=== PATIENT | female | born 1960 | race Caucasian/White ===

== ENCOUNTER → 2016-10-27 | Outpatient (CLI) | payer BC ==
--- NOTE | 2016-10-27 15:38 | CT ---
EXAMINATION TYPE: CT abdomen pelvis w con DATE OF EXAM: 10/27/2016 HISTORY: Blood in stool-bright red, on and off per patient. Abdominal pain not further specified per order CT DLP: 740mGycm Automated Exposure Control for Dose Reduction was Utilized. CONTRAST: CT scan of the abdomen and pelvis is performed with oral and with IV Contrast, patient injected with 100 mL of Omnipaque 300. COMPARISON: CT abdomen and pelvis September 10, 2013. FINDINGS: LUNG BASES: Some linear scarring posteriorly in the right lower lobe is present. There is prominent c alcification proximal LAD or stent on axial image 1 partially imaged. LIVER/GB: No significant abnormality is appreciated. PANCREAS: Pancreatic duct is visualized towards head but is not abnormally dilated. SPLEEN: No significant abnormality is seen. ADRENALS: No significant abnormality is seen. KIDNEYS: No significant abnormality is seen. BOWEL: The oral contrast reaches level of the proximal sigmoid colon. Terminal ileum is felt within n ormal limits seen best near coronal image 31. There is no suspicious small or large bowel dilatation identified. Evaluation bowel is slightly suboptimal as patient has very little intra-abdominal fat. UTERUS/ADNEXA: Uterus is retroverted in shape and somewhat small in size consistent with patient's po stmenopausal age. LYMPH NODES: No greater than 1cm abdominal or pelvic lymph nodes are appreciated. OSSEOUS STRUCTURES: No significant abnormality is seen. OTHER: No significant additional abnormality is seen. IMPRESSION: No suspicious finding is seen to account for patient's symptoms. No significant change fr om prior.
== END | disposition home or self-care (01) ==
LOC: RADCTMAIN 10:43
PROVIDERS: ATTEND Family Medicine
DX: R10.9 Unspecified abdominal pain (principal)
CPT/HCPCS: 74177; Q9967

== ENCOUNTER → 2018-05-12 | Outpatient (CLI) | payer BC, OTHER ==
--- NOTE | 2018-05-15 11:35 | MM ---
Reason for exam: screening (asymptomatic). Last mammogram was performed 1 year ago. History: Patient is postmenopausal and is nulliparous. Family history of breast cancer in sister at age 49 and breast cancer in cousin at age 39. Physical Findings: A clinical breast exam by your physician is recommended on an annual basis and results should be correlated with mammographic findings. MG 3D Screening Mammo W/Cad Bilateral CC and MLO view(s) were taken. Prior study comparison: May 11, 2017, bilateral MG screening mammo w CAD. February 04, 2016, bilateral MG 3d screening mammo w/cad. The breast tissue is extremely dense which could obscure a lesion on mammography. There are benign appearing round calcifications bilaterally. There is no discrete abnormality. ASSESSMENT: Benign, BI-RAD 2 RECOMMENDATION: Routine screening mammogram of both breasts in 1 year.
== END ==
LOC: RADMAMWWP 10:12
PROVIDERS: ATTEND Obstetrics & Gynecology
DX: Z12.31 Encounter for screening mammogram for malignant neoplasm of breast (principal)
CPT/HCPCS: 77063; 77067

== ENCOUNTER → 2018-06-26 | Outpatient (CLI) | payer BC ==
--- NOTE | 2018-06-26 09:35 | CTL ---
EXAMINATION TYPE: CT Low Dose Lung DATE OF EXAM ORDERED: 06/26/2018 HISTORY: 57-year-old female personal history of tobacco use. Lung cancer screening CT DLP: [address] CTDI: 1.61 mGy Automated exposure control for dose reduction was used. SCREENING VISIT: Baseline COMPARISON: None TECHNIQUE: Low dose computed tomography scan was performed through the chest at 1 mm thick sections a nd reconstructed images in the coronal/sagittal plane. Coronal MIP reconstruction also performed. CT DIAGNOSTIC QUALITY: Satisfactory FINDINGS: Heart normal size without pericardial effusion. Coronary vessel calcifications are present. Aorta normal caliber with conventional arch vessel branching anatomy. No thoracic lymphadenopathy by CT size criteria. Visualized upper abdomen shows no gross abnormality. Evaluation of the lungs shows mild centrilobular emphysema. Mild biapical pleural-parenchymal scarring. Calcified granuloma anterior right upper lobe, axial image 91. Additional calcified granuloma right lower lobe axial image 170. Calcified granuloma posterior left lower lobe axial image 18. Mild diffuse bronchial wall thickening. Prominent bands of atelectasis or scarring in the lower lungs. No consolidation or pleural effusion. Bones: Mild to moderate degenerative disc disease mid thoracic spine. Minimal anterior wedging of T5 as a chronic appearance. IMPRESSION: 1. LungRADS 2 - benign; a few scattered calcified granulomas. No other suspicious pulmonary nodules. 2. COPD with mild emphysema. RECOMMENDATION: 1. Continue annual low-dose lung cancer screening CT. 2. Smoking cessation. FOLLOW UP CT CHEST RECOMMENDATION: [address] LUNG RAD: Lung-Rad 2 Benign Appearance or Behavior
== END | disposition home or self-care (01) ==
LOC: RADCTMAIN 07:54
PROVIDERS: ATTEND Family Medicine
DX: J84.10 Pulmonary fibrosis, unspecified (principal); J43.9 Emphysema, unspecified; Z87.891 Personal history of nicotine dependence

== ENCOUNTER → 2020-02-29 | Outpatient (CLI) | payer BC, OTHER ==
--- NOTE | 2020-03-03 08:46 | MM ---
Reason for exam: screening (asymptomatic). Last mammogram was performed 1 year and 10 months ago. History: Patient is postmenopausal and is nulliparous. Family history of breast cancer in sister at age 49 and breast cancer in cousin at age 39. Physical Findings: A clinical breast exam by your physician is recommended on an annual basis and results should be correlated with mammographic findings. MG 3D Screening Mammo W/Cad Bilateral CC and MLO view(s) were taken. Prior study comparison: May 12, 2018, bilateral MG 3d screening mammo w/cad. May 11, 2017, bilateral MG screening mammo w CAD. The breast tissue is extremely dense which could obscure a lesion on mammography. No significant changes when compared with prior studies. ASSESSMENT: Benign, BI-RAD 2 RECOMMENDATION: Routine screening mammogram of both breasts in 1 year.
== END | disposition home or self-care (01) ==
LOC: RADMAMWWP 10:53
PROVIDERS: ATTEND Family Medicine
DX: Z12.31 Encounter for screening mammogram for malignant neoplasm of breast (principal); Z80.3 Family history of malignant neoplasm of breast
CPT/HCPCS: 77063; 77067

== ENCOUNTER → 2020-07-25 | Outpatient (CLI) | payer BC, OTHER | END | disposition home or self-care (01) | LOC: LABWHC1 09:46 | PROVIDERS: ATTEND Internal Medicine Rheumatology | DX: M05.79 Rheumatoid arthritis with rheumatoid factor of multiple sites without organ or systems involvement (principal) | CPT/HCPCS: 36415; 86480 ==

== ENCOUNTER → 2021-01-09 | Outpatient (CLI) | payer BC, OTHER ==
--- NOTE | 2021-01-09 09:02 | CTL ---
EXAMINATION TYPE: CT Low Dose Lung DATE OF EXAM ORDERED: 01/09/2021 HISTORY: . Lung cancer screening CT DLP: 47.[address] CTDI: 1.3 mGy Automated exposure control for dose reduction was used. SCREENING VISIT: COMPARISON: 06/26/2018 TECHNIQUE: Low dose computed tomography scan was performed through the chest at 1 mm thick sections a nd reconstructed images in the coronal plane at [address] DIAGNOSTIC QUALITY: Satisfactory FINDINGS: Heart normal size without pericardial effusion. Coronary vessel calcifications are present. Aorta nor mal caliber with conventional arch vessel branching anatomy. No thoracic lymphadenopathy by CT size c riteria. Visualized upper abdomen shows no gross abnormality. Evaluation of the lungs shows mild centrilobular emphysema. Mild biapical pleural-parenchymal scarring. Calcified granuloma anterior right upper lobe, stable. Additional calcified granuloma right lower lob e stable. Calcified granuloma posterior left lower lobe axial stable. Additional 2 mm right apical buffy ng nodule too small to characterize. Mild diffuse bronchial wall thickening. Prominent bands of atelectasis or scarring in the lower lung s. There is a area of increasing consolidation along the medial aspect of the right lower lobe with c hanges of bronchiectasis most likely in the basis of atelectasis. Correlate clinically to exclude a p neumonitis. Bones: Mild to moderate degenerative disc disease mid thoracic spine. Minimal anterior wedging of T5 as a chronic appearance. IMPRESSION: 1. Stable sub-5 mm pulmonary nodules the majority which are calcified compatible with granuloma. 2. COPD with area of increasing consolidation medial aspect superior segment right lower lobe most li kaitlyn in the basis of atelectasis correlate clinically to exclude a pneumonitis CT LUNG RAD AND CT CHEST RECOMMENDATION: Lung-Rad 2 Benign Appearance or Behavior: Continue annual sc reening with LDCT in 12 months. S Modifier (other clinically significant findings): S
== END | disposition home or self-care (01) ==
LOC: RADCTMAIN 07:55
PROVIDERS: ATTEND Family Medicine
DX: Z12.2 Encounter for screening for malignant neoplasm of respiratory organs (principal); J44.9 Chronic obstructive pulmonary disease, unspecified; R91.8 Other nonspecific abnormal finding of lung field
CPT/HCPCS: 71271

== ENCOUNTER → 2021-11-06 | Outpatient (CLI) | payer BC, OTHER ==
--- NOTE | 2021-11-09 18:29 | MM ---
Reason for Exam: Screening (asymptomatic). Last mammogram was performed 1 year(s) and 8 month(s) ago. Patient History: Menarche at age 10. Patient has no children. Postmenopausal. Maternal cousin had breast cancer, age 39. Sister had breast cancer, age 49. Risk Values: Ashley 5 year model risk: 3.1%. NCI Lifetime model risk: 12.8%. Physical Findings: Physical Exam Performed After Images Prior Study Comparison: 05/11/2017 Bilateral Screening Mammogram, [facility]. 05/12/2018 Bilateral Screening Mammogram, [facility]. 02/29/2020 Bilateral Screening Mammogram, [facility]. Tissue Density: The breast tissue is extremely dense which could obscure a lesion on mammography. Findings: Analyzed By CAD. No significant change from prior exams. Overall Assessment: Incomplete: need additional imaging evaluation, BI-RAD 0 Management: Diagnostic Breast Ultrasound of the left breast. Ultrasound whole left breast for nipple discharge. Electronically signed and approved by: Vielka Mcclellan M.D. Radiologist
== END | disposition home or self-care (01) ==
LOC: RADMAMWWP 06:51
PROVIDERS: ATTEND Family Medicine
DX: Z12.31 Encounter for screening mammogram for malignant neoplasm of breast (principal); Z78.0 Asymptomatic menopausal state; Z80.3 Family history of malignant neoplasm of breast
CPT/HCPCS: 77063; 77067

== ENCOUNTER → 2021-11-16 | Outpatient (CLI) | payer BC, OTHER ==
--- NOTE | 2021-11-16 15:05 | USB ---
Reason for Exam: Additional evaluation requested from prior study. Patient History: Menarche at age 10. Patient has no children. Postmenopausal. Maternal cousin had breast cancer, age 39. Sister had breast cancer, age 49. Risk Values: Ashley 5 year model risk: 3.1%. NCI Lifetime model risk: 12.8%. Prior Study Comparison: 05/12/2018 Bilateral Screening Mammogram, [facility]. 02/29/2020 Bilateral Screening Mammogram, [facility]. 11/06/2021 Bilateral MG 3D screening mammo w/cad, [facility]. Findings: The whole breast of the left breast, the axilla of the left breast and the retroareolar of the left breast were scanned. No discrete solid or cystic areas evident within the left breast. Consider screening MRI if clinically appropriate. Diagnostic imaging can be performed for clinical findings. Overall Assessment: Negative, BI-RAD 1 Management: Screening Mammogram of both breasts in 1 year. A clinical breast exam by your physician is recommended on an annual basis and results should be correlated with mammographic findings. Electronically signed and approved by: Cal Brooks D.O. Radiologis
== END | disposition home or self-care (01) ==
LOC: RADUSWWP 06:55
PROVIDERS: ATTEND Family Medicine
DX: R92.8 Other abnormal and inconclusive findings on diagnostic imaging of breast (principal); Z78.0 Asymptomatic menopausal state; Z80.3 Family history of malignant neoplasm of breast

== ENCOUNTER → 2021-11-16 | Outpatient (CLI) | payer BC, OTHER ==
--- NOTE | 2021-11-16 09:22 | US ---
EXAMINATION TYPE: US abdomen complete DATE OF EXAM: 11/16/2021 COMPARISON: NONE CLINICAL HISTORY: R19.00 INTRA ABD PELVIC SWELLING. EXAM MEASUREMENTS: Liver Length: 13.2 cm Gallbladder Wall: 0.1 cm CBD: 0.5 cm Spleen: 6.9 cm Right Kidney: 9.7 x 4.6 x 4.5 cm Left Kidney: 9.0 x 4.5 x 4.3 cm Pancreas: wnl Liver: wnl Gallbladder: wnl Evidence for sonographic Rodriguez's sign: No CBD: wnl Spleen: wnl Right Kidney: No hydronephrosis or masses seen, partially obscured by overlying bowel gas Left Kidney: No hydronephrosis or masses seen, partially obscured by overlying bowel gas Upper IVC: wnl Abd Aorta: wnl Scanned at patients palpable, consider possible midline wall hernia. No obvious bowel involvement is evident. Noncontrast CT may demonstrate this more clearly. IMPRESSION: 1. Intra-abdominal contents appear unremarkable by ultrasound. 2. There may be a midline anterior abdominal wall hernia. Consider CT to further evaluate.
== END | disposition home or self-care (01) ==
LOC: RADUSWWP 06:57
PROVIDERS: ATTEND Family Medicine
DX: R19.09 Other intra-abdominal and pelvic swelling, mass and lump (principal)
CPT/HCPCS: 76700

== ENCOUNTER → 2021-12-18 | Day surgery (SDC) | payer BC, OTHER ==
[2021-12-16 15:03] VITALS: BMI 22.3
[~2021-12-18] MED LIST: LACTATED RINGERS 1,000 ML IV SCH; LIDOCAINE 2% INJ 20 MG/ML (2 ML VIAL) ONE; PROPOFOL 10 MG/ML 20 ML VIAL IV ONE
[2021-12-18 11:27] VITALS: RESP 16; TEMP 98.6
--- NOTE | 2021-12-18 12:54 | P.PCN ---
Date of Procedure: 12/18/21 Procedure(s) Performed: BRIEF HISTORY: Patient is a 61-year-old pleasant white female scheduled for an elective colonoscopy as a part of screening for colorectal neoplasia PROCEDURE PERFORMED: Colonoscopy. PREOPERATIVE DIAGNOSIS: Screening for colon cancer. IV sedation per Anesthesia. PROCEDURE: After informed consent was obtained, the patient, was brought into the endoscopy unit. IV sedation was administered by Anesthesia under continuous monitoring. Digital rectal examination was normal. Initially the Olympus CF-160 flexible video colonoscope was then inserted in the rectum, gradually advanced into the cecum without any difficulty. Careful examination was performed as the scope was gradually being withdrawn. Ileocecal valve and the appendiceal orifice were visualized and appeared normal. Prep was excellent. Mucosa of the cecum, ascending colon, transverse colon, descending colon, sigmoid colon, and rectum appeared normal. Retroflexion was performed in the rectum and no lesions were seen. The patient tolerated the procedure well. IMPRESSION: Normal-appearing colon from rectum to cecum with no evidence of colorectal neoplasia. RECOMMENDATIONS: Findings of this examination were discussed with the patient as well as a family. She was advised to have a repeat screening colonoscopy in 10 years..
[2021-12-18 13:22] VITALS: BP 158/91; PULSE 64
== END ==
LOC: ORWHC2ENDO 10:42
PROVIDERS: ATTEND Internal Medicine Gastroenterology
DX: Z12.11 Encounter for screening for malignant neoplasm of colon (principal); I10 Essential (primary) hypertension; M06.9 Rheumatoid arthritis, unspecified; F17.200 Nicotine dependence, unspecified, uncomplicated; Z79.899 Other long term (current) drug therapy; Z80.9 Family history of malignant neoplasm, unspecified
CPT/HCPCS: 45378; J2704; J2001

== ENCOUNTER → 2022-06-25 | Outpatient (CLI) | payer BC, OTHER ==
--- NOTE | 2022-06-25 09:04 | CTL ---
EXAMINATION TYPE: CT Low Dose Lung DATE OF EXAM ORDERED: 06/25/2022 HISTORY: Long-term tobacco use. Lung cancer screening CT DLP: [address] CTDI: 1.6 mGy Automated exposure control for dose reduction was used. SCREENING VISIT: Second after baseline COMPARISON: Prior studies 2020 and 2018 TECHNIQUE: Low dose computed tomography scan was performed through the chest at 1 mm thick sections a nd reconstructed images in multiple planes at 1 mm and [address] DIAGNOSTIC QUALITY: Satisfactory FINDINGS: LUNG NODULES: Present, detailed below: Occasional scattered small calcified nodule redemonstrated. For reference is 3 mm right upper lobe ca lcified nodule or benign granuloma axial image 60. No significant greater than 5 mm new or enlarging noncalcified pulmonary nodules. LUNGS: COPD: Severity: Mild to moderate Fibrosis: Severity: [id number] parenchymal fibrotic change in the lung bases is redemonstrated. There is new involvement in the right middle lobe from most recent study. Lymph nodes: None Other findings: None RIGHT PLEURAL SPACE: Effusion: None Calcification: None Thickening: None Pneumothorax: None LEFT PLEURAL SPACE: Effusion: None Calcification: None Thickening: None Pneumothorax: None HEART: Heart Size: Normal Coronary Calcification: Focal moderate proximal LAD redemonstrated Pericardial Effusion: None OTHER FINDINGS: Upper abdomen: None Bony thorax: Exaggerated thoracic kyphosis Supraclavicular region: None Other: None IMPRESSION: Mild emphysematous changes with evidence of old granulomatous disease. No significant new or enlarging greater than 5 mm noncalcified pulmonary nodules CT LUNG RAD AND CT CHEST RECOMMENDATION: Lung-Rad 2 Benign Appearance or Behavior: Continue annual sc reening with LDCT in 12 months. S Modifier (other clinically significant findings): None
== END | disposition home or self-care (01) ==
LOC: RADCTMAIN 07:48
PROVIDERS: ATTEND Family Medicine
DX: Z12.2 Encounter for screening for malignant neoplasm of respiratory organs (principal); J43.9 Emphysema, unspecified; Z87.891 Personal history of nicotine dependence
CPT/HCPCS: 71271

== ENCOUNTER → 2022-09-17 | Outpatient (CLI) | payer BC, OTHER ==
[~2022-09-17] MED LIST changes: -LACTATED RINGERS 1,000 ML IV SCH; -LIDOCAINE 2% INJ 20 MG/ML (2 ML VIAL) ONE; -PROPOFOL 10 MG/ML 20 ML VIAL IV ONE; +REGADENOSON 0.4 MG/5 ML SYRINGE IV PRN
--- NOTE | 2022-09-17 17:07 | NM ---
EXAMINATION TYPE: NM stress lexiscan cardiolite DATE OF EXAM: 09/17/2022 COMPARISON: NONE HISTORY: R94.31 abn EKG TECHNIQUE: After the intravenous administration of 9.3 mCi Tc 99m Sestamibi - Cardiolite resting SPE CT images acquired 45 minutes post injection. The patient received 0.4mg Lexiscan, 25.1 mCi Tc 99m Sestamibi - Stress images obtained [address] injection FINDINGS: Review of stress and rest SPECT images demonstrates no distinct perfusion abnormality. Gated analysi s shows normal wall motion with an estimated left ventricular ejection fraction of 70 %. IMPRESSION: No scintigraphic evidence for reversible ischemia.
--- NOTE | 2022-09-17 19:57 | CA ---
Lexiscan Nuclear Stress Test Report Name: Aurora Roland Exam Date: 09/17/2022 10:46 Exam Location: [place] Stress Ht (in): 62 Wt (lb): 129 BSA: 1.59 Ordering Phys: Sergio Lentz MD Referring Phys: JERRI, Technologist: Victoriano Car Age: 61 Gender: F : 1960 Procedure CPT: Indications: R94.31 ABNORMAL EKG ICD-10 Codes: Patient History: Medications: Meds past 24 hrs: Pretest Chest Pain: STRESS TEST Lexiscan Protocol Exercise Duration (min:sec): 01:[address] Depressions (mm): Angina Score: Hummel Score: Resting HR (bpm): 57 Peak HR (bpm): 104 Resting BP (mmHg): 152 / 83 Peak BP (mmHg): 167 / 98 MPHR: 157 Target HR: 133 % MPHR: 66 METS: 1.0 Total Dose: Peak Dose: Atropine: Double Product: 57033 BP Response: Stress Termination: INFUSION COMPLETE Stress Symptoms: NO SYMPTOMS Stress Summary: ECG ANALYSIS Resting ECG: Stress ECG: CONCLUSIONS Lexiscan cardio lyte stress test Baseline heart rate 56 beats a minute, Baseline blood pressure 168/87 mmHg Baseline to EKG is normal During Lexiscan infusion there was no ECG or so ischemia no arrhythmias, no symptoms Impression No ECG evidence for ischemia during Lexiscan infusion Nuclear portion will be reported separately Dr. Adrian Ann MD (Electronically Signed) Final Date: 17 September 2022 19:56
== END | disposition home or self-care (01) ==
LOC: RADNMMAIN 08:33
PROVIDERS: ATTEND Family Medicine
DX: R94.31 Abnormal electrocardiogram [ECG] [EKG] (principal)
CPT/HCPCS: 93017; 78452; A9500; J2785

== ENCOUNTER → 2023-01-06 | Outpatient (CLI) | payer BC, OTHER ==
--- NOTE | 2023-01-07 08:36 | MM ---
Reason for Exam: Screening (asymptomatic). Last mammogram was performed 1 year(s) and 2 month(s) ago. Patient History: Menarche at age 10. Patient has no children. Postmenopausal. Maternal cousin had breast cancer, age 39. Sister had breast cancer, age 49. Risk Values: Ashley 5 year model risk: 3.2%. NCI Lifetime model risk: 12.4%. Prior Study Comparison: 02/04/2016 Bilateral Screening Mammogram, [facility]. 05/11/2017 Bilateral Screening Mammogram, [facility]. 05/12/2018 Bilateral Screening Mammogram, [facility]. 02/29/2020 Bilateral Screening Mammogram, [facility]. 11/06/2021 Bilateral MG 3D screening mammo w/cad, [facility]. Tissue Density: The breast tissue is extremely dense which could obscure a lesion on mammography. Findings: Analyzed By CAD. There is no suspicious group of microcalcifications or new suspicious mass in either breast. Overall Assessment: Benign, BI-RAD 2 Management: Screening Mammogram of both breasts in 1 year. . Patient should continue monthly self-breast exams. A clinical breast exam by your physician is recommended on an annual basis. This exam should not preclude additional follow-up of suspicious palpable abnormalities. Note on Ashley scores and lifetime risk: 1. A Ashley score greater than 3% is considered moderate risk. If this is the case, consider specialist referral to assess eligibility for a risk reducing agent. 2. If overall lifetime risk for the development of breast cancer is 20% or higher, the patient may qualify for future screening with alternating mammogram and breast MRI. Electronically signed and approved by: Freeman Medrano M.D. Radiologis
== END | disposition home or self-care (01) ==
LOC: RADMAMWWP 07:34
PROVIDERS: ATTEND Family Medicine
DX: Z12.31 Encounter for screening mammogram for malignant neoplasm of breast (principal); Z78.0 Asymptomatic menopausal state; Z80.3 Family history of malignant neoplasm of breast
CPT/HCPCS: 77063; 77067

== ENCOUNTER → 2023-09-15 | Outpatient (CLI) | payer BC, OTHER ==
--- NOTE | 2023-09-15 10:26 | CTL ---
EXAMINATION TYPE: CT Low Dose Lung DATE OF EXAM ORDERED: 09/15/2023 HISTORY: Personal tobacco use. Lung cancer screening CT DLP: [address] CTDI: 1.72 mGy Automated exposure control for dose reduction was used. SCREENING VISIT: Subsequent COMPARISON: 06/25/2019. TECHNIQUE: Low dose computed tomography scan was performed through the chest at 1 mm thick sections a nd reconstructed images in the coronal plane at [address] DIAGNOSTIC QUALITY: Limited, but interpretable FINDINGS: LUNG NODULES: None. LUNGS: COPD: Severity: None Fibrosis: Severity: Mild on left Lymph nodes: None Other findings: None RIGHT PLEURAL SPACE: Effusion: None Calcification: None Thickening: None Pneumothorax: None LEFT PLEURAL SPACE: Effusion: None Calcification: None Thickening: None Pneumothorax: None HEART: Heart Size: Normal Coronary calcification: Mild Pericardial effusion: None OTHER FINDINGS: Upper abdomen: Normal Bony thorax: Normal Supraclavicular region: Normal Other: Ascending thoracic aorta at the level the main pulmonary artery measures 3.4 cm. The main pul monary artery at the bifurcation measures 2.7 cm. IMPRESSION: 1. No suspicious findings to suggest primary or metastatic neoplasm. 2. Prior nodule not identified on current examination. FOLLOW UP CT CHEST RECOMMENDATION: Follow-up low-dose CT chest one year CT LUNG RAD: Lung-Rad 2 Benign Appearance or Behavior
== END | disposition home or self-care (01) ==
LOC: RADCTMAIN 09:37
PROVIDERS: ATTEND Family Medicine
DX: Z12.2 Encounter for screening for malignant neoplasm of respiratory organs (principal); Z87.891 Personal history of nicotine dependence
CPT/HCPCS: 71271

== ENCOUNTER → 2024-02-22 | Outpatient (CLI) | payer MEDICARE, BC, OTHER ==
--- NOTE | 2024-02-24 19:14 | BD ---
EXAMINATION TYPE: Axial Bone Density DATE OF EXAM: 02/22/2024 CLINICAL HISTORY: 63 years old Female. ICD-10 CODE: Z78.0 ASYMPTOMATIC MENOPAUSAL STATE Height: 60 in Weight: 128 lbs FRAX RISK QUESTIONS: Alcohol (3 or more units per day): yes Secondary Osteoporosis: 3. Menopause before 45: age 38 Rheumatoid Arthritis: yes RISK FACTORS EXAM MEASUREMENTS: Bone mineral densitometry was performed using the Bottle System. Bone mineral density as measured about the Lumbar spine is: ----- L1-L4(G/cm2): 0.911 T Score Values are as follows: ----- L1: -2.1 ----- L2: -2.3 ----- L3: -2.3 ----- L4: -2.4 ----- L1-L4: -2.2 Z Score Values are as follows: ----- L1: -0.3 ----- L2: -0.5 ----- L3: -0.4 ----- L4: -0.6 ----- L1-L4: -0.4 Bone mineral density has: Decreased -2.7% since study of: 01/27/2015 Bone mineral density about the R hip (g/cm2): 0.843 Bone mineral density about the L hip (g/cm2): 0.963 T Score values are as follows: -----R Neck: -1.6 -----L Neck: -1.2 -----R Total: -1.3 -----L Total: -0.4 Z Score values are as follows: -----R Neck: 0.0 -----L Neck: 0.4 -----R Total: 0.1 -----L Total: 1.0 Bone mineral density has: Decreased -2.1% since study of: 01/27/2015 FRAX%s: The graph provided illustrates a 14.6% chance for a major osteoporotic fx and a 2.4% chance f or the hips probability for fx in 10 years time. IMPRESSION: Osteopenia (T Score between -2.5 and -1). There is slightly increased risk of fracture and the patient may be considered for treatment. Re-Screen 2-5 years. NOTE: T-SCORE=SD OF THE YOUNG ADULT MEAN. [facility], , 02/24/2024 7:12 PM
--- NOTE | 2024-02-26 09:38 | MM ---
Reason for Exam: Screening (asymptomatic). Last mammogram was performed 1 year(s) and 1 month(s) ago. Patient History: Menarche at age 10. Patient has no children. Postmenopausal. Maternal cousin had breast cancer, age 39. Sister had breast cancer, age 49. Risk Values: Ashley 5 year model risk: 3.3%. NCI Lifetime model risk: 12.0%. Prior Study Comparison: 02/29/2020 Bilateral Screening Mammogram, [facility]. 11/06/2021 Bilateral MG 3D screening mammo w/cad, [facility]. 01/06/2023 Bilateral MG 3D screening mammo w/cad, [facility]. Tissue Density: The breasts are extremely dense, which lowers the sensitivity of mammography. Findings: Analyzed By CAD. The pattern is symmetrical. No significant interval change No suspicious groups of microcalcifications, spiculated or lobular masses, architectural distortion or other secondary signs of malignancy are mammographically apparent. Overall Assessment: Benign, BI-RAD 2 Management: Screening Mammogram of both breasts in 1 year. A negative mammogram report should not preclude additional follow up of suspicious palpable abnormalities. Patient should continue monthly self breast exam. A clinical breast exam by your physician is recommended on an annual basis and results should be correlated with mammographic findings. Note on Ashley scores and lifetime risk: 1. A Ashley score greater than 3% is considered moderate risk. If this is the case, consider specialist referral to assess eligibility for a risk reducing agent. 2. If overall lifetime risk for the development of breast cancer is 20% or higher, the patient may qualify for future screening with alternating mammogram and breast MRI. [facility], , 02/26/2024 9:34 AM. Electronically signed and approved by: Cal Brooks D.O. Radiologis
== END | disposition home or self-care (01) ==
LOC: RADMAMWWP 07:01
PROVIDERS: ATTEND Family Medicine
DX: Z12.31 Encounter for screening mammogram for malignant neoplasm of breast (principal); M85.89 Other specified disorders of bone density and structure, multiple sites; Z78.0 Asymptomatic menopausal state; Z80.3 Family history of malignant neoplasm of breast
CPT/HCPCS: 77063; 77067; 77080

== ENCOUNTER → 2024-09-17 | Outpatient (CLI) | payer MEDICARE, BC, OTHER ==
--- NOTE | 2024-09-17 15:44 | CTL ---
EXAMINATION TYPE: CT Low Dose Lung DATE OF EXAM: 09/17/2024 3:23 PM COMPARISON: 09/15/2023. CLINICAL INDICATION: Female, 63 years old with history of Z12.2 LUNG SCREENING Z87.891 FORMER SMOKER; Former smoker, .5 ppd x 50 years. States quit smoking 2.5 years ago., history of tobacco use. TECHNIQUE: Multiple axial non-contrast scans were obtained from approximately the lung apices through the upper abdomen. Coronal and sagittal reformatted images were obtained. Low dose technique was uti lized. MIP were created on a separate workstation and submitted for review. CT DLP: 45.9 mGycm, Automated exposure control for dose reduction was used. CT Contrast: Contrast used: None Oral contrast used: None FINDINGS: Lack of intravenous contrast and low dose technique limits the evaluation of the vascular and soft ti ssue structures. LUNGS: No evidence of pulmonary fibrosis. No evidence of focal consolidation, pneumothorax or pleural effusion. Centrilobular emphysema changes. Increased reticular changes in the lung bases. Apical sca rring present. Left lower lobe posterior fat-containing Bochdalek hernia. Consolidation changes around the bucket ec hocardiogram possibly atelectasis. Nodules: RUL: None. RML: None. RLL: None. ARMEN: None. LLL: None. AIRWAY: Patent and unremarkable. HEART: Size within normal limits. Mild coronary artery calcifications present. MEDIASTINUM: No gross evidence of adenopathy. VASCULATURE: No aortic aneurysm. MUSCULOSKELETAL: No acute osseous abnormalities SOFT TISSUES/LYMPH NODES: Unremarkable. LOWER NECK: No significant findings. UPPER ABDOMEN: No significant findings. IMPRESSION: 1. No clinically significant pulmonary nodules. 2. Mild emphysema. 3. Basilar predominant interstitial lung disease versus scarring 4. Left lower lobe posterior fat-containing Bochdalek hernia with probable atelectasis immediately ad jacent to it. CT LUNG RAD AND CT CHEST RECOMMENDATION: Lung-Rad 1 Negative: Continue annual screening with LDCT in 12 months. S Modifier (other clinically significant findings): None Recommend smoking cessation (if current smoker), or continuation of smoking cessation (if prior smoke r). Annual screening for lung cancer with low-dose computed tomography is recommended in adults ages 55 to 77 years who have a 30 pack-year smoking history and currently smoke or have quit within the pa st 15 years. Screening should be discontinued once a person has not smoked for 15 years or develops a health problem that substantially limits life expectancy or the ability or willingness to have curat gregoria lung surgery. Lung rads 2021 [email or web address] [email or web address], , 09/17/2024 3:42 PM
== END | disposition home or self-care (01) ==
LOC: RADCTMAIN 14:17
PROVIDERS: ATTEND Family Medicine
DX: Z12.2 Encounter for screening for malignant neoplasm of respiratory organs (principal); J43.2 Centrilobular emphysema; K44.9 Diaphragmatic hernia without obstruction or gangrene; Z87.891 Personal history of nicotine dependence
CPT/HCPCS: 71271